=== PATIENT | male | born 1960 | race Caucasian/White ===

== ENCOUNTER 2020-04-16 02:09 | Emergency (ER) | payer SELFPAY ==
[~2020-04-16] VITALS: Ht 170.2 cm; Wt 99.8 kg
[2020-04-16 02:22] VITALS: Ht 170.2 cm; Wt 99.8 kg
[2020-04-16 03:48] VITALS: BP 132/78
== END 2020-04-16 03:48 | disposition home or self-care (01) ==
LOC: ED 02:09
DX: B02.9 Zoster without complications (principal); F17.210 Nicotine dependence, cigarettes, uncomplicated